=== PATIENT | female | born 1980 | race Caucasian/White ===

== ENCOUNTER 2018-07-12 11:48 | Inpatient (IN) | payer OTHER ==
[~2018-07-12] VITALS: Ht 152.4 cm; Wt 76.8 kg
[2018-07-12 11:57] VITALS: BP 124/72
--- NOTE | 2018-07-12 11:59 | NUR ---
PT TRIAGED AND SENT TO BED 12
--- NOTE | 2018-07-12 12:09 | NUR ---
PATIENT PRESENTS TO ED WITH c/o sudden onset of right pelvic area sharp pain x yesterday---denies n/v/d DENIES N/V/D; SKIN IS PINK/WARM/DRY; AAOX4 WITH EVEN AND STEADY GAIT; LUNGS CLEAR BL; HR EVEN AND REGULAR; PT DENIES ANY FEVER, CP, SOB, OR COUGH AT THIS TIME; PATIENT STATES PAIN OF 10/10 AT THIS TIME; VSS; PATIENT POSITIONED FOR COMFORT; HOB ELEVATED; BEDRAILS UP X2; BED DOWN. ER MD MADE AWARE OF PT STATUS.
[2018-07-12] MEDS ORDERED: KETOROLAC 60 MG/2 ML VIAL IM ONE (12:35)
--- NOTE | 2018-07-12 12:50 | NUR ---
pt to radiology
[2018-07-12 13:09] LABS: BASOPHILS # (AUTO) 0.1 K/uL (0.00-0.22); BASOPHILS % (AUTO) 0.7 % (0.0-2.0); EOSINOPHILS # (AUTO) 0.1 K/uL (0-0.4); EOSINOPHILS % (AUTO) 0.8 % (0.0-4.0); HEMATOCRIT 41.7 % (36-48); HEMOGLOBIN 13.7 g/dL (12.0-16.0); LYMPHOCYTES # (AUTO) 2.6 K/uL (2.5-16.5); LYMPHOCYTES % (AUTO) 18.4 % (20.5-51.1); MEAN CORPUSCULAR HEMOGLOBIN 26 pg (27-31); MEAN CORPUSCULAR HGB CONC 33 g/dL (33-37); MEAN CORPUSCULAR VOLUME 78.2 fL (80-94); MONOCYTES # (AUTO) 1.1 K/uL (0.8-1.0); MONOCYTES % (AUTO) 7.8 % (1.7-9.3); NEUTROPHILS # (AUTO) 10.4 K/uL (1.8-7.7); NEUTROPHILS % (AUTO) 72.3 % (42.2-75.2); PLATELET COUNT (AUTO) 273 K/uL (140-450); RED BLOOD CELL COUNT(AUTO) 5.33 MIL/uL (4.20-5.40); RED CELL DISTRIBUTION WIDTH 13.4 % (11.6-13.7); WHITE BLOOD COUNT (AUTO) 14.4 K/uL (4.8-10.8)
[2018-07-12 13:12] LABS: COLOR,URINE YELLOW (YELLOW)
[2018-07-12 13:14] LABS: ANION GAP 9.7 (8-16); CARBON DIOXIDE 29.8 mmol/L (21-32); CREATININE 0.6 mg/dL (0.6-1.3); POTASSIUM 3.5 mmol/L (3.5-5.1)
[2018-07-12 13:14] LABS: BILIRUBIN,URINE NEGATIVE (NEGATIVE); BLOOD, URINE TRACE (NEGATIVE); LEUKOCYTE ESTERASE ,URINE NEGATIVE (NEGATIVE); NITRITE, URINE NEGATIVE (NEGATIVE); UGLUCOSE NEGATIVE (NEGATIVE)
[2018-07-12 13:15] LABS: APPEARANCE,URINE SLIGHTLY HAZY (CLEAR)
[2018-07-12 13:24] LABS: ALBUMIN 3.8 g/dL (3.4-5.0); TOTAL BILIRUBIN 0.7 mg/dL (0.0-1.0)
[2018-07-12 13:27] LABS: RBC,URINE 3-10 (FEW) /HPF (0-5)
[2018-07-12 13:28] LABS: WBC,URINE NONE SEEN /HPF (0-5)
--- NOTE | 2018-07-12 14:13 | NUR ---
PLAN IS TO ADMIT PT PER MD--PT IS AWARE SITTING AT BEDSIDE CHAIR, DENIES PAIN AT THIS TIME DENIES N/V
[2018-07-12] MEDS ORDERED: ACETAMINOPHEN 325 MG TAB PO PRN (15:20)
[2018-07-12] MEDS ORDERED: ONDANSETRON 4 MG/2 ML VIAL IM/IVP PRN (15:20)
[2018-07-12] MEDS ORDERED: LORazepam 2 MG/ML VIAL IM/IVP PRN (15:20)
[2018-07-12] MEDS ORDERED: ZOLPIDEM 5 MG TAB PO PRN (15:20)
[2018-07-12] MEDS ORDERED: HYDROcodone/APAP 5/325 MG 1 TAB TAB PO PRN (15:20)
[2018-07-12] MEDS ORDERED: DOCUSATE SODIUM 100 MG GELCAP PO PRN (15:20)
[2018-07-12 15:47] LABS: PROTHROMBIN TIME 9.9 secs (10.8-13.4)
[2018-07-12 15:54] LABS: BENZODIAZEPINE, URINE NEG. ng/mL (NEG <=200); CANNABINOID, URINE NEG. ng/mL (NEG <=50); COCAINE, URINE NEG. ng/mL (NEG <=300); OPIATE, URINE NEG. ng/mL (NEG <=2000); PHENCYCLIDINE SCREEN,URINE NEG. ng/mL (NEG <=25)
--- NOTE | 2018-07-12 16:02 | NUR ---
PT TAKEN TO FLOOR BY RNS BUBBA AND MOR
[2018-07-12 16:06] LABS: CHOL/HDL RATIO 3.5 (1-4.5); MAGNESIUM 1.9 mg/dL (1.8-2.4); PHOSPHORUS 3.2 mg/dL (2.5-4.9); THYROID STIMULATING HORMONE 0.68 uIU/mL (0.34-3.74)
[2018-07-12 16:10] VITALS: BP 114/67
--- NOTE | 2018-07-12 16:10 | NUR ---
RECEIVED PT FROM ER NURSE, BUBBA LEZAMA, ADMITTED TO MS, PT IS ALERT, AWAKE AND AMBULATORY, ASSISTED TO BED AND MADE COMFORTABLE, VITAL SIGNS WAS TAKEN AND IS WITHIN NORMAL LIMITS, PT HAS AN IV LINE ON THE RT AC G. 20 ON SALINE LOCK, INTACT. PT DENIES PAIN AT THIS TIME AND NO SOB NOTED. WILL CONTINUE TO MONITOR PT
--- NOTE | 2018-07-12 16:10 | NUR ---
Patient will be admitted to care of dr fountain. Admited to med surg. Will go to [id number]. Belongings list completed. Report to jose milian.
[2018-07-12 16:11] LABS: BARBITURATE, URINE NEG. ng/ml (NEG <=200)
[2018-07-12] MEDS: DEXT 5% / NACL 0.45% 1,000 ML IV SCH (16:16)
--- NOTE | 2018-07-12 16:16 | NUR ---
PT WAS STARTED ON D5 1/2 NS AT A RATE OF 100ML/HR.
--- NOTE | 2018-07-12 16:29 | NUR ---
DR. WATERS IS DOING AN INITIAL ASSESSMENT TO THE PT NOW, WITH ON THE BEDSIDE, PT IS RESPONDING APPROPRIATELY TO MD QUESTIONS.
--- NOTE | 2018-07-12 16:35 | NUR ---
[facility]SA SWAB DONE TO PT AND SAMPLE WAS SENT TO LAB.
--- NOTE | 2018-07-12 18:00 | NUR ---
PT IS AWAKE SEATED ON THE BED, WITH SIDE RAILS UP AND CALL LIGHT WITHIN REACH, ON THE BEDSIDE, PT DENIES PAIN AT THIS TIME. WILL CONTINUE TO MONITOR PT.
[2018-07-12] MEDS ORDERED: Pamprin PO (18:32)
--- NOTE | 2018-07-12 19:25 | NUR ---
ENDORSED PT TO ALLOY WEIGHER NURSE, MIA FOR CONTINUITY OF CARE, PT IS STABLE AT THIS TIME WITH ON THE BEDSIDE.
--- NOTE | 2018-07-12 19:26 | NUR ---
RECEIVED PT IN STABLE CONDITION FROM AM NURSE. AWAKE,ALERT AND ORIENTED X4. MED SURG PT. AMBULATORY. WITH NO C/O PAIN AT THIS TIME. AWARE ABOUT NPO STATUS . WITH IVF INFUSING WELL ON THE RT AC#20. CLEAR AND PATENT. WITH FAMILY AT BEDSIDE. BED ON LOW POSITION. CALL LIGHT PLACED WITHIN REACH. PLAN OF CARE DISCUSSED AND VERBALIZED UNDERSTANDING. WILL CONTINUE TO MONITOR.
[2018-07-12] MEDS ORDERED: INFLUENZA VIRUS VACCINE QUAD 0.5 ML SYR IMVAC PRN (21:00)
--- NOTE | 2018-07-12 21:26 | NUR ---
TALKED TO DR. RODRÍGUEZ, RESIDENT MD, SHE SAID PT CAN BE NPO EXCEPT MEDS. MADE AWARE ALSO THAT RESULT OF US PELVIC IS ALREADY IN. SHE SAID SHE WILL CHECK IT.
--- NOTE | 2018-07-12 21:55 | NUR ---
DR. SERRATO HERE, SEEN AND EXAMINED PT.
--- NOTE | 2018-07-12 22:30 | NUR ---
PT HAD SOME JUICE AND JELLO. TOLERATED WELL.
[2018-07-12] MEDS ORDERED: AMPICILLIN/SULBACTAM 1.5 GM VIAL ONE (23:33)
[2018-07-12] MEDS: AMPICILLIN/SULBACTAM 1.5 GM in NACL 0.9% 50 ML IV SCH (23:47)
[2018-07-12 23:52] VITALS: BP 120/62
--- NOTE | 2018-07-13 | NUR ---
PT AWAKE. NO MORE C/O ANY DISCOMFORT NOTED. WILL CONTINUE TO MONITOR.
--- NOTE | 2018-07-13 02:30 | NUR ---
MADE ROUNDS. PT IS SLEEPING. NO S/S OF ANY DISCOMFORT /PAIN NOTED.
[2018-07-13] MEDS: DEXT 5% / NACL 0.45% 1,000 ML IV SCH (02:31)
--- NOTE | 2018-07-13 05:00 | NUR ---
PT ASLEEP. NO C/O ANY PAIN THIS AM. NO NAUSEA AND VOMITING NOTED.
[2018-07-13] MEDS ORDERED: AMPICILLIN/SULBACTAM 1.5 GM VIAL ONE (05:18)
[2018-07-13] MEDS: AMPICILLIN/SULBACTAM 1.5 GM in NACL 0.9% 50 ML IV SCH ×2 (05:43→11:49)
[2018-07-13] MEDS ORDERED: NACL 0.9% 1,000 ML IV SCH (06:15)
[2018-07-13 06:48] LABS: BASOPHILS % (AUTO) 0.3 % (0.0-2.0); EOSINOPHILS # (AUTO) 0.2 K/uL (0-0.4); EOSINOPHILS % (AUTO) 1.8 % (0.0-4.0); HEMATOCRIT 39.5 % (36-48); HEMOGLOBIN 12.9 g/dL (12.0-16.0); LYMPHOCYTES % (AUTO) 37.5 % (20.5-51.1); MEAN CORPUSCULAR HEMOGLOBIN 26 pg (27-31); MEAN CORPUSCULAR HGB CONC 33 g/dL (33-37); MEAN CORPUSCULAR VOLUME 79.7 fL (80-94); MONOCYTES % (AUTO) 9.2 % (1.7-9.3); NEUTROPHILS # (AUTO) 5.4 K/uL (1.8-7.7); NEUTROPHILS % (AUTO) 51.2 % (42.2-75.2); PLATELET COUNT (AUTO) 250 K/uL (140-450); RED BLOOD CELL COUNT(AUTO) 4.95 MIL/uL (4.20-5.40); RED CELL DISTRIBUTION WIDTH 13.5 % (11.6-13.7); WHITE BLOOD COUNT (AUTO) 10.6 K/uL (4.8-10.8)
--- NOTE | 2018-07-13 07:05 | NUR ---
RECEIVED PT REPORT AT BEDSIDE FROM PURCHASE ANALYST NURSE. PT IS AWAKE AND ALERT, NO S/S OF ACUTE DISTRESS. PT IS ON ROOM AIR. IV SITE NOTED ON R AC, 20 GAUGE, INFUSING D51/2 AT 80 ML/HR. SKIN INTACT. PT IS AMBULATORY, ON A FULL LIQUID DIET AT THIS TIME. CALL LIGHT WITHIN REACH. WILL CONTINUE TO MONITOR.
--- NOTE | 2018-07-13 07:15 | NUR ---
ENDORSED PT IN STABLE CONDITION TO AM NURSE.
[2018-07-13 07:32] LABS: ANION GAP 9.2 (8-16); CARBON DIOXIDE 30.3 mmol/L (21-32); CREATININE 0.6 mg/dL (0.6-1.3); POTASSIUM 3.5 mmol/L (3.5-5.1)
[2018-07-13 07:36] LABS: MAGNESIUM 1.8 mg/dL (1.8-2.4); PHOSPHORUS 4.4 mg/dL (2.5-4.9)
[2018-07-13 08:00] VITALS: BP 132/58
--- NOTE | 2018-07-13 08:48 | NUR ---
PATIENT HAS BEEN SCREENED AND CATEGORIZED LOW NUTRITION RISK. PATIENT WILL BE SEEN WITHIN 7 DAYS OF ADMISSION. 07/19/[address]
[2018-07-13] MEDS ORDERED: IBUP-2213 PO (10:18)
--- NOTE | 2018-07-13 13:05 | NUR ---
PT HAS DISCHARGED. FLU VACCINE ADMINISTERED. IV SITE DC'D, WRIST BAND REMOVED. DISCHARGE INSTRUCTIONS AND PRESCRIPTION GIVEN, SIGNATURES OBTAINED. PT LEFT WITH ALL HER BELONGINGS. PT IS PICKED UP BY HER . PT LEFT IN STABLE CONDITION.
== END 2018-07-13 13:00 | disposition home or self-care (01) | DRG 761 ==
LOC: MED 11:48 → MTU 15:26
PROVIDERS: ADMIT General Practice; ATTEND General Practice
DX: N83.201 Unspecified ovarian cyst, right side (principal); E66.01 Morbid (severe) obesity due to excess calories; Z68.33 Body mass index [BMI] 33.0-33.9, adult; E78.5 Hyperlipidemia, unspecified; E83.51 Hypocalcemia; D72.829 Elevated white blood cell count, unspecified; Z23 Encounter for immunization
CPT/HCPCS: 36415; 71045; 76830; 80048; 80053; 80305; 81001; 81025; 83036; 83690; 83735; 83880; 84100; 84134; 84439; 84443; 85025; 85610; 85730; 87081; 90658; 93005; 96372; 99285; J0295; J1885; J7060; Q0092